=== PATIENT | male | born 1990 | race Two or more races ===

== ENCOUNTER 2019-08-18 19:02 | Emergency (ER) | payer SELFPAY ==
[~2019-08-18] VITALS: Ht 170.2 cm; Wt 77.1 kg
[2019-08-18 19:02] VITALS: BP 147/81
[2019-08-18] MEDS ORDERED: LORazepam Inj 2mg/ml 1ml IM ONE (19:15)
[2019-08-18] MEDS ORDERED: Haloperidol 5mg/ml Inj IM ONE (19:15)
[2019-08-18] MEDS ORDERED: DiphenhydrAMINE 50mg/ml Inj IM ONE (19:15)
--- NOTE | 2019-08-18 19:18 | Emergency Room Report ---
History of Present Illness General Chief Complaint: Behavioral Complaint Source: Patient (Neal Banda MD) Present Illness HPI Patient is a 28-year-old male brought in by EMS with [employer] after increased agitation. Reportedly had been banging his head against fixed object. Reportedly threatened to harm himself. Apparently he had asked police to shoot him. He will not provide any history to me. (Neal Banda MD) Allergies: Coded Allergies: No Known Allergies (Unverified , 08/18/19) COVID-19 Screening Contact w/high risk pt: No Recent Travel to affected area: No Experienced COVID-19 symptoms?: No COVID-19 Testing performed [employer] SETTER: No (Neal Banda MD) Patient History Past Medical History: see triage record Reviewed Nursing Documentation: PMH: Agreed; PSxH: Agreed (Neal Banda MD) Review of Systems All Other Systems: limited - Poor cooperation (Neal Banda MD) Physical Exam Vital Signs Date Time Temp Pulse Resp B/P (MAP) Pulse Ox O2 Delivery O2 Flow Rate FiO2 08/18/19 18:57 98.1 150 20 147/81 (103) 98 Room Air General Appearance: well appearing, alert Head: other - Forehead abrasion and soft tissue swelling Respiratory: lungs clear, normal breath sounds Cardiovascular #1: normal peripheral pulses Gastrointestinal: normal inspection, soft Musculoskeletal: normal inspection Neurologic: alert, motor strength/tone normal, range mounter III-XII nml as tested Psychiatric: anxious - Agitated Skin: other - Forehead soft tissue swelling and abrasion. (Neal Banda MD) Medical Decision Making Diagnostic Impression: Primary Impression: Forehead contusion Additional Impression: Psychosis ER Course Patient presented for agitation and self injury. Differential diagnosis include was not limited to psychosis, substance abuse, alcohol withdrawal among others. Because of complexity of patient's case laboratory tests and imaging studies were ordered.Patient was noted to have some initial reluctance to speak with me. He subsequently stated that he was with us all that all and seemed to have some evidence of thought broadcasting.Patient was given medications for agitation. Patient was noted to have some skin avulsion to his forehead which does not appear to be amenable to suturing. Bleeding was controlled with direct pressure. Patient was given medications due to agitation including Haldol Ativan and Benadryl. He was subsequently more calm. Urine drug screen showed positive for marijuana. CT of the head read by radiology showed soft tissue swelling without evident intracranial hemorrhage. Patient started on IV fluids blood alcohol was negative. Patient will be medically cleared for psychiatric placement is currently on a hold.Patient was endorsed to Dr. Mayorga pending repeat laboratory testing and reevaluation. repeat laboratory testing for medical clearance. Labs Test 08/18/19 19:40 08/18/19 21:45 White Blood Count 7.1 K/UL (4.8-10.8) Red Blood Count 5.54 M/UL (4.70-6.10) Hemoglobin 17.5 G/DL (14.2-18.0) Hematocrit 52.9 % (42.0-52.0) Mean Corpuscular Volume 96 FL (80-99) Mean Corpuscular Hemoglobin 31.7 PG (27.0-31.0) Mean Corpuscular Hemoglobin Concent 33.1 G/DL (32.0-36.0) Red Cell Distribution Width 12.9 % (11.6-14.8) Platelet Count 358 K/UL (150-450) Mean Platelet Volume 6.7 FL (6.5-10.1) Neutrophils (%) (Auto) 79.3 % (45.0-75.0) Lymphocytes (%) (Auto) 10.8 % (20.0-45.0) Monocytes (%) (Auto) 8.4 % (1.0-10.0) Eosinophils (%) (Auto) 0.1 % (0.0-3.0) Basophils (%) (Auto) 1.3 % (0.0-2.0) Sodium Level 136 MMOL/L (136-145) Potassium Level 3.9 MMOL/L (3.5-5.1) Chloride Level 97 MMOL/L (98-107) Carbon Dioxide Level 21 MMOL/L (21-32) Anion Gap 18 mmol/L (5-15) Blood Urea Nitrogen 11 mg/dL (7-18) Creatinine 2.0 MG/DL (0.55-1.30) Estimat Glomerular Filtration Rate 40.6 mL/min (>60) Glucose Level 197 MG/DL (74-106) Calcium Level 10.2 MG/DL (8.5-10.1) Total Bilirubin 0.6 MG/DL (0.2-1.0) Aspartate Amino Transf (AST/SGOT) 19 U/L (15-37) Alanine Aminotransferase (ALT/SGPT) 16 U/L (12-78) Alkaline Phosphatase 73 U/L (46-116) Total Protein 9.2 G/DL (6.4-8.2) Albumin 4.8 G/DL (3.4-5.0) Globulin 4.4 g/dL Albumin/Globulin Ratio 1.1 (1.0-2.7) Salicylates Level 8.2 ug/mL (2.8-20) Acetaminophen Level < 2 MCG/ML (10-30) Serum Alcohol < 3 mg/dL Urine Opiates Screen Negative (NEGATIVE) Urine Barbiturates Screen Negative (NEGATIVE) Phencyclidine (PCP) Screen Negative (NEGATIVE) Urine Amphetamines Screen Negative (NEGATIVE) Urine Benzodiazepines Screen Negative (NEGATIVE) Urine Cocaine Screen Negative (NEGATIVE) Urine Marijuana (THC) Screen Positive (NEGATIVE) (Neal Banda MD) ER Course Assumed care of the patient approximately 2200 hrs. pending repeat labs. Briefly this is a 28-year-old male brought in for bizarre behavior on 5150 hold. Reportedly the patient was hitting his head against the ground, flight of ideas, nonsensical speech. Initial creatinine elevated at 2.0 the patient received IV fluids. Repeat creatinine within normal limits. Tested positive marijuana but otherwise labs are within normal limits. He has been resting comfortably. CT scan of his head is negative for intracranial injury. He is medically cleared for psychiatric evaluation. 0545: Patient sleeping comfortably. Patient reports smoking marijuana but denies any alcohol or drug use. He is calm and cooperative at this time. Will contact nearby psychiatric facilities to evaluate patient. He remains on 5150 hold. Signed out to oncoming physician pending final disposition. Laboratory Tests Test 08/18/19 19:40 08/18/19 21:45 08/19/19 00:15 White Blood Count 7.1 K/UL (4.8-10.8) Red Blood Count 5.54 M/UL (4.70-6.10) Hemoglobin 17.5 G/DL (14.2-18.0) Hematocrit 52.9 % (42.0-52.0) H Mean Corpuscular Volume 96 FL (80-99) Mean Corpuscular Hemoglobin 31.7 PG (27.0-31.0) H Mean Corpuscular Hemoglobin Concent 33.1 G/DL (32.0-36.0) Red Cell Distribution Width 12.9 % (11.6-14.8) Platelet Count 358 K/UL (150-450) Mean Platelet Volume 6.7 FL (6.5-10.1) Neutrophils (%) (Auto) 79.3 % (45.0-75.0) H Lymphocytes (%) (Auto) 10.8 % (20.0-45.0) L Monocytes (%) (Auto) 8.4 % (1.0-10.0) Eosinophils (%) (Auto) 0.1 % (0.0-3.0) Basophils (%) (Auto) 1.3 % (0.0-2.0) Sodium Level 136 MMOL/L (136-145) 141 MMOL/L (136-145) Potassium Level 3.9 MMOL/L (3.5-5.1) 3.6 MMOL/L (3.5-5.1) Chloride Level 97 MMOL/L (98-107) L 106 MMOL/L (98-107) Carbon Dioxide Level 21 MMOL/L (21-32) 24 MMOL/L (21-32) Anion Gap 18 mmol/L (5-15) H 11 mmol/L (5-15) Blood Urea Nitrogen 11 mg/dL (7-18) 11 mg/dL (7-18) Creatinine 2.0 MG/DL (0.55-1.30) H 1.3 MG/DL (0.55-1.30) Estimated Glomerular Filtration Rate 40.6 mL/min (>60) > 60 mL/min (>60) Glucose Level 197 MG/DL (74-106) H 89 MG/DL (74-106) # Calcium Level 10.2 MG/DL (8.5-10.1) H 7.8 MG/DL (8.5-10.1) #L Total Bilirubin 0.6 MG/DL (0.2-1.0) Aspartate Amino Transferase (AST) 19 U/L (15-37) Alanine Aminotransferase (ALT) 16 U/L (12-78) Alkaline Phosphatase 73 U/L (46-116) Total Protein 9.2 G/DL (6.4-8.2) H Albumin 4.8 G/DL (3.4-5.0) Globulin 4.4 g/dL Albumin/Globulin Ratio 1.1 (1.0-2.7) Salicylates Level 8.2 ug/mL (2.8-20) Acetaminophen Level < 2 MCG/ML (10-30) L Serum Alcohol < 3 mg/dL Urine Opiates Screen Negative (NEGATIVE) Urine Barbiturates Screen Negative (NEGATIVE) Phencyclidine (PCP) Screen Negative (NEGATIVE) Urine Amphetamines Screen Negative (NEGATIVE) Urine Benzodiazepines Screen Negative (NEGATIVE) Urine Cocaine Screen Negative (NEGATIVE) Urine Marijuana (THC) Screen Positive (NEGATIVE) H (Wilton Mayorga MD) CT/MRI/US Diagnostic Results CT/MRI/US Diagnostic Results : Impression Procedure: CT Head no Contrast EXAM: CT Head Without Intravenous Contrast CLINICAL HISTORY: Patient is a 28-year-old male brought in by EMS with [employer] after increased agitation. Reportedly had been banging his head against fixed object. Reportedly threatened to harm himself. Apparently he had asked police to shoot him. TECHNIQUE: Axial computed tomography images of the head/brain without intravenous contrast. CTDI is 53.4 mGy and DLP is 1017 mGy-cm. One or more of the following dose reduction techniques were used: automated exposure control, adjustment of the mA and/or kV according to patient size, use of iterative reconstruction technique. Coronal reformatted images were created and reviewed. COMPARISON: No relevant prior studies available. FINDINGS: Brain: Unremarkable. No hemorrhage. No significant white matter disease. No edema. Ventricles: Unremarkable. No ventriculomegaly. Bones/joints: Unremarkable. No acute fracture. Soft tissues: Moderate midline forehead scalp hematoma. Sinuses: Unremarkable as visualized. No acute sinusitis. Mastoid air cells: Unremarkable as visualized. No mastoid effusion. IMPRESSION: No intracranial hemorrhage or skull fracture Dictated By: Corey Lemos MD Electronically Signed By: Croey Lemos MD Signed Date/Time 08/18/19 1482 CC: Neal Banda MD (Wilton Mayorga MD) Last Vital Signs Date Time Temp Pulse Resp B/P (MAP) Pulse Ox O2 Delivery O2 Flow Rate FiO2 08/18/19 18:57 98.1 150 20 147/81 (103) 98 Room Air Status: improved (Neal Banda MD) Disposition: HOME, SELF-CARE Condition: Stable Neal Banda MD Aug 18, 2019 19:18 Wilton Mayorga MD Aug 19, 2019 02:28
[2019-08-18 20:40] VITALS: BP 132/77
[2019-08-18 20:48] LABS: ANION GAP 18 mmol/L (5-15); BASOPHILS % (AUTO) 1.3 % (0.0-2.0); BLOOD UREA NITROGEN 11 mg/dL (7-18); CALCIUM 10.2 MG/DL (8.5-10.1); CARBON DIOXIDE 21 MMOL/L (21-32); CHLORIDE 97 MMOL/L (98-107); EOSINOPHILS % (AUTO) 0.1 % (0.0-3.0); HEMATOCRIT 52.9 % (42.0-52.0); HEMOGLOBIN 17.5 G/DL (14.2-18.0); LYMPHOCYTES % (AUTO) 10.8 % (20.0-45.0); MEAN CORPUSCULAR VOLUME 96 FL (80-99); MONOCYTES % (AUTO) 8.4 % (1.0-10.0); NEUTROPHILS % (AUTO) 79.3 % (45.0-75.0); PLATELET COUNT 358 K/UL (150-450); POTASSIUM 3.9 MMOL/L (3.5-5.1); RED BLOOD COUNT 5.54 M/UL (4.70-6.10); RED CELL DISTRIBUTION WIDTH 12.9 % (11.6-14.8); SODIUM 136 MMOL/L (136-145); WHITE BLOOD COUNT 7.1 K/UL (4.8-10.8)
[2019-08-18 20:51] LABS: ALANINE AMINOTRANSFERASE 16 U/L (12-78); ALBUMIN 4.8 G/DL (3.4-5.0); ALBUMIN/GLOBULIN RATIO 1.1 (1.0-2.7); ALKALINE PHOSPHATASE 73 U/L (46-116); ASPARTATE AMINO TRANSFERASE 19 U/L (15-37); BILIRUBIN,TOTAL 0.6 MG/DL (0.2-1.0)
[2019-08-18 21:00] VITALS: BP 128/68
--- NOTE | 2019-08-18 21:49 | Diagnostic Imaging Report ---
EXAM: CT Head Without Intravenous Contrast CLINICAL HISTORY: Patient is a 28-year-old male brought in by EMS with [employer] after increased agitation. Reportedly had been banging his head against fixed object. Reportedly threatened to harm himself. Apparently he had asked police to shoot him. TECHNIQUE: Axial computed tomography images of the head/brain without intravenous contrast. CTDI is 53.4 mGy and DLP is 1017 mGy-cm. One or more of the following dose reduction techniques were used: automated exposure control, adjustment of the mA and/or kV according to patient size, use of iterative reconstruction technique. Coronal reformatted images were created and reviewed. COMPARISON: No relevant prior studies available. FINDINGS: Brain: Unremarkable. No hemorrhage. No significant white matter disease. No edema. Ventricles: Unremarkable. No ventriculomegaly. Bones/joints: Unremarkable. No acute fracture. Soft tissues: Moderate midline forehead scalp hematoma. Sinuses: Unremarkable as visualized. No acute sinusitis. Mastoid air cells: Unremarkable as visualized. No mastoid effusion. IMPRESSION: No intracranial hemorrhage or skull fracture
[2019-08-18 22:00] VITALS: BP 113/66
[2019-08-18 23:39] VITALS: BP 115/66
[2019-08-19 00:37] LABS: ANION GAP 11 mmol/L (5-15); BLOOD UREA NITROGEN 11 mg/dL (7-18); CALCIUM 7.8 MG/DL (8.5-10.1); CARBON DIOXIDE 24 MMOL/L (21-32); CHLORIDE 106 MMOL/L (98-107); CREATININE 1.3 MG/DL (0.55-1.30); POTASSIUM 3.6 MMOL/L (3.5-5.1); SODIUM 141 MMOL/L (136-145)
[2019-08-19 02:00] VITALS: BP 125/69
[2019-08-19 04:29] VITALS: BP 115/63
[2019-08-19 05:58] VITALS: BP 101/83
[2019-08-19] MEDS ORDERED: Haloperidol Decanoate (Long Acting) 50mg Inj IM ONE (14:30)
[2019-08-19 14:58] VITALS: BP 101/83
--- NOTE | 2019-08-19 22:30 | Consultation ---
DATE OF CONSULTATION: 08/19/2019 NOTE: INCOMPLETE DICTATION HISTORY OF PRESENT ILLNESS: This is a 28-year-old [place] male who has been admitted on a 5150. The patient apparently has been smoking weed every day for the past several months. He became psychotic, having persecutory delusion and banging his head against the floor. The patient is having paranoid ideation. He is not endorsing any suicidal ideation Chinyere Ghosh M.D. DR: JANETTE JOB#: [id number] CC: MAXIMINO
== END 2019-08-19 15:00 | disposition home or self-care (01) ==
LOC: EDBD 19:02 → EMR 20:30
DX: F23 Brief psychotic disorder (principal); S00.83XA Contusion of other part of head, initial encounter; W22.8XXA Striking against or struck by other objects, initial encounter; Y92.9 Unspecified place or not applicable; F12.90 Cannabis use, unspecified, uncomplicated
CPT/HCPCS: 36415; 70450; 80048; 80053; 80307; 85025; 96360; 96361; 96372; 99284; G0480; J1200; J1630; J1631; J7030